=== PATIENT | male | born 1980 | race Two or more races ===

== ENCOUNTER 2022-09-30 21:55 | Emergency (ER) | payer OTHER ==
[~2022-09-30] VITALS: Ht 167.6 cm; Wt 121.6 kg
[2022-09-30] MEDS ORDERED: BACTRIM 400-801 EACH PO (22:59)
== END 2022-09-30 23:03 | disposition home or self-care (01) ==
LOC: ER 21:55
DX: L03.114 Cellulitis of left upper limb (principal)

== ENCOUNTER 2023-01-12 15:20 | Emergency (ER) | payer OTHER ==
[~2023-01-12] VITALS: Ht 167.6 cm; Wt 106.6 kg
[~2023-01-12 15:20] MED LIST: BACTRIM 400-801 EACH PO
== END 2023-01-12 17:48 | disposition home or self-care (01) ==
LOC: ER 15:20
DX: S42.001A Fracture of unspecified part of right clavicle, initial encounter for closed fracture (principal); S22.31XA Fracture of one rib, right side, initial encounter for closed fracture; S40.011A Contusion of right shoulder, initial encounter; S70.01XA Contusion of right hip, initial encounter; S20.211A Contusion of right front wall of thorax, initial encounter; V29.888A Rider (driver) (passenger) of other motorcycle injured in other specified transport accidents, initial encounter; Y93.89 Activity, other specified; Y92.413 State road as the place of occurrence of the external cause; M12.511 Traumatic arthropathy, right shoulder; G89.11 Acute pain due to trauma; M25.511 Pain in right shoulder; Z20.822 Contact with and (suspected) exposure to COVID-19
CPT/HCPCS: 36415; 70450; 70490; 71110; 71250; 72040; 73000; 73030; 73501; 74177; 82803; Q9965

== ENCOUNTER 2024-03-26 06:05 | Day surgery (SDC) | payer OTHER ==
[2024-03-26] MEDS ORDERED: MEPERIDINE HCL/PF 50 MG/ML VIAL IV ONE (08:45)
[2024-03-26] MEDS ORDERED: MIDAZOLAM HCL/PF 5 MG/ML VIAL IV ONE (08:45)
[2024-03-26] MEDS ORDERED: DIPHENHYDRAMINE HCL 50 MG/ML VIAL 1ML IV ONE (08:45)
[2024-03-26] MEDS ORDERED: NEXIUM 24HR20 MG PO (08:55)
== END 2024-03-26 10:40 | disposition home or self-care (01) ==
LOC: AMB-ENDOS 06:05
PROVIDERS: ATTEND Surgery
DX: K29.50 Unspecified chronic gastritis without bleeding (principal); B96.81 Helicobacter pylori [H. pylori] as the cause of diseases classified elsewhere; R10.13 Epigastric pain; E66.9 Obesity, unspecified; K44.9 Diaphragmatic hernia without obstruction or gangrene

== ENCOUNTER 2024-12-03 22:58 | Emergency (ER) | payer OTHER ==
[~2024-12-03] VITALS: Ht 167.6 cm; Wt 85.7 kg
[~2024-12-03 22:58] MED LIST changes: +NEXIUM 24HR20 MG PO
[2024-12-04] MEDS ORDERED: LIDOCAINE HCL 1% 10ML VIAL IJ ONE (01:15)
[2024-12-04] MEDS ORDERED: CEFAZOLIN SODIUM 1,000 MG VIAL IM ONE (01:15)
[2024-12-04] MEDS ORDERED: TETANUS & DIPHTHERIA TOX,ADULT 0.5 ML VIAL IM ONE (01:15)
[2024-12-04] MEDS ORDERED: CEFAZOLIN SODIUM 1,000 MG VIAL ONE (01:17)
[2024-12-04] MEDS ORDERED: LIDOCAINE HCL 1% 10ML VIAL ONE (01:17)
[2024-12-04] MEDS ORDERED: HYDROGEN PEROXIDE 473 ML BOTTLE TOP ONE (01:32)
== END 2024-12-04 03:18 | disposition home or self-care (01) ==
LOC: ER 22:58
DX: S91.119A Laceration without foreign body of unspecified toe without damage to nail, initial encounter (principal); X58.XXXA Exposure to other specified factors, initial encounter; Y93.89 Activity, other specified; Y92.89 Other specified places as the place of occurrence of the external cause; Y99.8 Other external cause status